=== PATIENT | male | born 1940 | race Caucasian/White ===

== ENCOUNTER 2021-12-16 15:48 | Emergency (ER) | payer BC, MEDICARE ==
[2021-12-16] MEDS ORDERED: Ketorolac 30 MG/ML SDV IVPUSH STA (16:10)
[2021-12-16] MEDS: Sodium Chloride 0.9% 10 ML Syringe FLUSH PRN ×2 (16:10→16:51)
[2021-12-16] MEDS ORDERED: Albuterol/Ipratropium 3.0-0.5 MG/3 ML Neb Soln NEB ONE (16:12)
[2021-12-16] MEDS ORDERED: Ondansetron 4 MG/2 ML SDV IVPUSH ONE (16:40)
[2021-12-16] MEDS ORDERED: Colchicine 0.6 MG Tab PO STA (18:53)
[2021-12-16 20:07] VITALS: BP 126/78; PULSE 104
== END 2021-12-16 19:20 | disposition home or self-care (01) ==
LOC: FB.ED 15:48
DX: U07.1 COVID-19 (principal); M10.9 Gout, unspecified; I48.91 Unspecified atrial fibrillation; I10 Essential (primary) hypertension; Z86.16 Personal history of COVID-19; Z88.1 Allergy status to other antibiotic agents; Z79.899 Other long term (current) drug therapy
CPT/HCPCS: 36415; 71045; 80053; 83880; 84484; 85025; 85379; 93005; 94640; 96374; 96375; 99284; A9270; J1885; J2405; J7620-GY